=== PATIENT | male | born 1995 | race Caucasian/White ===

== ENCOUNTER 2024-07-13 20:56 | Emergency (ER) | payer OTHER, SELFPAY ==
[2024-07-13 20:58] VITALS: BP 121/79; PULSE 91; RESP 18; TEMP 36.6; O2SAT 98; BMI 23.1
--- NOTE | 2024-07-13 21:13 | EX.ED.UPPERE ---
HPI History of Present Illness HPI Narrative: Healthy 28-year-old male within the last hour was try to separate frozen hamburger patties with a knife when he slipped lacerating the left hand on the radial side of the palm just proximal to his index finger. Tetanus up-to-date about 5 years ago. No other complaints. He is right-hand dominant. Chief Complaint: Laceration Informant: patient Occured/Mechanism Mechanism/Context: Yes injury Onset/Context/Timing Onset: Today Context: Sudden Onset Timing: Continuous Quality of Pain: Sharp Current Severity: Moderate Maximum Severity: Moderate Associated Symptoms Associated Symptoms: Negative for Parasthesia, Weakness or Loss of Funtion Narrative Narrative: Healthy 28-year-old male [id number] lacerated his left hand hamburger patties with a knife. Occurred in the last hour. Tetanus up-to-date. Tetanus Immunization: <5 years Prior similar symptoms: No Recent Illness/Hospitalization: No PFSH PFSH Medical History no medical history no medical history Home Medications ?Medication ?Instructions ?Recorded ?Last Taken ?Type cephalexin 500 mg capsule 500 mg PO Q8H 7 days #21 caps 07/13/24 Unknown Rx Allergy/AdvReac Type Severity Reaction Status Date / Time No Known Allergies Allergy Verified 07/13/24 20:57 Social History Smoking Status: Never smoker ROS ROS ED ROS Narrative Denies recent illness. Constitutional Constitutional ED: Denies chills or fever(s) Eyes Eyes: Denies blurry vision ENT ENT ED: Denies ear pain or rhinorrhea Cardiovascular Cardiovascular: Denies chest pain Respiratory/Chest Respiratory/Chest: Denies cough or dyspnea Gastrointestinal Gastrointestinal: Denies abdominal pain Genitourinary Genitourinary ED: Denies dysuria or hematuria Musculoskeletal Musculoskeletal: Denies back pain or myalgias Integumentary Denies abscess or Abrasions Neurologic Neurologic: Denies headache(s) Psychiatric Psychiatric: Denies anxiety or depression Endocrine Endocrinology: Denies cold intolerance Hematologic/Lymphatic Hematologic/Lymphatic: Denies easy bleeding Allergic/Immunologic Allergic/Immunologic ED: Denies mouth swelling or tongue swelling EXAM Physical Exam Narrative Exam Narrative: 24-year-old male vital signs are stable afebrile. Admits having 6-7 alcoholic beverages tonight. H EENT exam unremarkable atraumatic. Pupils round react light. Nontender. No trauma. Neck nontender. Back nontender. Lungs clear to auscultation bilaterally. Heart regular rate and rhythm rate about 90 no murmur. Chest wall ribs nontender. Abdomen soft nontender. Moving all 4 extremities. Specifically left hand on the radial side of his palm just proximal to the MCP of his index finger he has a laceration that wraps around the lateral side of his hand. Bright red blood. No pulsatile bleeding. He is able to open and close his hand. He has greatly decreased sensation on the radial side of his left index finger consistent radial nerve injury. Normal range of motion. No infection or foreign body. Also involvement of the muscle belly of the radial side of the palm just proximal to the index finger. Patient is awake and alert. Answering questions and following commands. Const Vital Signs: 07/13/24 20:58 Temperature 97.9 F Temperature Source Oral Pulse Rate 91 Respiratory Rate 18 Blood Pressure 121/79 H Blood Pressure Mean 93 Pulse Ox 98 Oxygen Delivery Method Room Air Positive well nourished and well developed; Negative for obese, cachectic, contractures or unkempt General Appearance ED: well developed and NAD; Negative for unkempt, cachectic, contractures, cyanotic or diaphoretic Nutritional Appearance: Negative for cachectic or obese HEENT Reports moist mucous membranes normocephalic and atraumatic; Negative for trauma or tenderness Eyes PERRL and EOMs intact bilaterally Neck full ROM and supple General: Negative for tenderness Lymph Lymphatic: Negative for other Chest Wall inspection of chest normal and palpation of chest normal Resp normal respiratory effort and clear to auscultation bilaterally Cardio regular rate, regular rhythm, S1 normal heart sound, S2 normal heart sound and no murmurs Rate: Negative for bradycardia or tachycardic Rhythm: Negative for abnormal rhythm GI non-tender, non-distended and no masses Auscultation: normoactive bowel sounds Palpation: soft; Negative for tender, guarding or rebound tenderness present Back/Spine no CVA tenderness General Back: Negative for CVA tenderness Cervical Spine: Negative for cervical spine tenderness Thoracic Spine / Upper Back: Negative for thoracic spinal tenderness Lumbar Spine / Lower Back: Negative for lumbar spinal tenderness Extremity normal to inspection and full ROM Extremity Narrative: Except left palm. Radial side. Proximal to his metacarpal phalangeal joint he has a laceration that wraps around the radial side of his hand. Active right red blood bleeding. He is able to open close his hand. Normal touch sensation. Normal range of motion. No foreign body or infection. Neuro oriented x3, CN's II-XII intact bilaterally, moves all extremities and no focal motor deficits Neuro Narrative: Positive EtOH. Most likely intoxicated. But awake alert. Answering questions and following commands. Sensorium / Orientation: alert, oriented to person, oriented to place and oriented to time; Negative for orientation impaired Motor Exam: strength 5/5 throughout Psych mental status grossly normal Appearance: Negative for unkempt Mood & Affect: Negative for depressed, anxious or tearful Skin Lesions: no lesions Rashes: no rashes Trauma: laceration Image ED - Upper Extremity Diagram: 1. Left hand laceration proximal to the index finger on the radial side including the palm and wrapping around. 2. Same as above. MDM MDM MDM Narrative Medical decision making narrative: 28-year-old healthy [id number] male tetanus up-to-date has a significant laceration to the left palm. This will need to be repaired. I believe he has a left index finger digital nerve injury due to decreased sensation. Involvement of the muscle belly. He had superficial arterials I do not see an obvious digital artery laceration. Repeat exam at 10:15 PM good closure. No active bleeding. No expanding hematoma. Instructed on wound care. Plastic surgery hand follow-up with Dr. Dale. Placed on Keflex 3 times a day for a week. Return if any signs of infection or significant swelling. History & Record Review Discussion w/independent historian: Patient Procedures Lacerations Left palm laceration repair: : Length: 3 in Depth: Muscle Shape: Linear Prep: Sterile Conditions and Shure-Clens Laceration repair: Irrigated, Lidocaine, Local, Skin sutures and Wound explored Number of Sutures/Energy: 7 Suture Information: Ethilon, Simple and - (3-0) Comment: Left radial side palm laceration. Just proximal to the MCP left index finger. Decreased sensation left lateral index finger consistent with a digital nerve injury. Laceration of the muscle. Superficial arterial injury. Local anesthetized with lidocaine. Approximately 3 inches in length. Cleaned with Shkeith-Clens. Irrigated profusely with saline. Explored. Involve the skin, muscle belly and digital nerve. No foreign body. No infection. Closed using 7 simple interrupted 3-0 Ethilon sutures. Proper hemostasis wound closure is obtained. Patient tolerated procedure well. Reexamined after it was closed. No bleeding. No expanding hematoma. Still has full flexion extension of the hand specifically the left index finger. He was instructed on wound care. Plastic surgery hand follow-up. Placed on Keflex. Instructions return if any signs of infection or significant bleeding or swelling. Discharge Plan Triage Chief Complaint: Laceration ED Provider: Will Chambers Dx/Rx/DC Orders Clinical Impression: Laceration of hand, left, Digital nerve injury, Laceration of muscle of left hand Instructions: ED Laceration, Hand: All Closures Prescriptions: New cephalexin 500 mg capsule 500 mg PO Q8H 7 Days Qty: 21 0RF Primary Care Provider: Catie Espinal Referrals: Catie Espinal MD [Primary Care Provider] - Salvatore Dale MD [Med Staff - Active Staff] - As soon as possible (Call his office Monday morning to be seen this week.) Activity Restrictions/Additional Instructions: Keep the hand clean and dry. He can get wet in the shower but then dry it carefully and thoroughly when you are done. Do not let it soak in any dirty water either bath water or dishwater. Ice and elevate to decrease pain and swelling. Motrin and Tylenol for pain. Gently clean daily with soap and water peroxide and water. Apply antibiotic ointment. Call and follow-up with the plastic surgeon Dr. Salvatore Shanks. He can follow-up with the laceration repair and discussed with you if you want any further repair of the digital nerve. Return if significant swelling, redness pus or fever or any signs of infection or significant bleeding. Stitches out in 10 days. You will be started on the antibiotic Keflex 1 pill 3 times a day for 7 days. This is try to prevent any type of infection because it was a deep laceration. Print Language: [place] Disposition Disposition: Home, Self Care
[2024-07-13] MEDS: Lidocaine 1% (20 ml mdv) 20 ML Vial 10 ML INFILT (21:14)
[2024-07-13 22:26] VITALS: BP 124/60; PULSE 78; RESP 16; TEMP 36.8; O2SAT 99
== END 2024-07-13 22:31 | disposition home or self-care (01) ==
PROVIDERS: Emergency Provider Emergency Medicine; PCP Family Medicine; Visit Provider Emergency Medicine
DX: S61.412A Laceration without foreign body of left hand, initial encounter (principal); S66.922A Laceration of unspecified muscle, fascia and tendon at wrist and hand level, left hand, initial encounter; S64.491A Injury of digital nerve of left index finger, initial encounter; W26.0XXA Contact with knife, initial encounter
CPT/HCPCS: 12004; 99283